=== PATIENT | male | born 1965 | race Caucasian/White ===

== ENCOUNTER → 2025-04-10 | Outpatient (REF) | payer OTHER ==
[~2025-04-10] MED LIST: ASPI81TAEC PO; ATOR1TAB21 PO; CLOP75TA99 PO; ENTR1TAB PO; FARX1TAB3 PO; POTA-136 PO; SYNT25TA PO; TORS20TA2 PO; VENTAER INH
== END ==
LOC: M LAB REF 13:37
PROVIDERS: ATTEND Physician Assistant Medical
DX: I50.22 Chronic systolic (congestive) heart failure (principal)